=== PATIENT | male | born 1970 | race Caucasian/White ===

== ENCOUNTER → 2016-08-20 | Outpatient (CLI) | payer OTHER ==
[~2016-08-20] MED LIST: ASPI-586 PO; HYDR-3702 PO; METO50TA7 PO
[2016-08-20 10:47] LABS: BASOPHILS % (AUTO) 0 % (0-2); EOSINOPHILS % (AUTO) 1 % (0-4); MEAN CORPUSCULAR HGB CONC 34.3 g/dL (31.0-37.0); MEAN CORPUSCULAR VOLUME 97 FL (80-100); MONOCYTES # (AUTO) 0.5 X10^3; MONOCYTES % (AUTO) 10 % (3-11); NEUTROPHILS # (AUTO) 3.9 X10^3; NEUTROPHILS % (AUTO) 71 % (51-67); PLATELET COUNT 136 10^3uL (150-450); WHITE BLOOD COUNT 5.49 10^3uL (4.0-11.0)
[2016-08-20 11:20] LABS: MEAN CORPUSCULAR HEMOGLOBIN 33.3 PG (26.0-34.0)
--- NOTE | 2016-08-20 11:21 | Diagnostic Imaging Report ---
INDICATION: Physical. Comparison with 07/22/2015. FINDINGS: PA and lateral views show the lungs to be clear. The heart is not enlarged. No hilar adenopathy. No pulmonary edema. No pneumothorax or pleural effusions. No bony abnormalities. IMPRESSION: Normal PA and lateral chest. Dictated by: Dictated on workstation # [id number]
[2016-08-20 11:48] LABS: ALBUMIN 4.6 g/dL (3.4-5.0); ALKALINE PHOSPHATASE 73 U/L (38-126); ANION GAP 15.2 MEQ/L (3-15); BUN/CREATININE RATIO 21 (10-20); CALCULATED IONIZED CALCIUM 3.9 mg/dL (3.8-4.6); TOTAL PROTEIN 7.3 g/dL (6.4-8.5)
== END ==
LOC: RAD 10:30
PROVIDERS: ATTEND Family Medicine
DX: Z00.00 Encounter for general adult medical examination without abnormal findings (principal); N44.8 Other noninflammatory disorders of the testis
CPT/HCPCS: 36415; 71020; 80053; 80061; 83036; 84403; 84436; 84443; 85025; 93005

== ENCOUNTER → 2016-08-24 | Outpatient (CLI) | payer OTHER ==
--- NOTE | 2016-08-24 14:32 | Diagnostic Imaging Report ---
INDICATION: Right testicular swelling. COMPARISON: None. DISCUSSION: Sonographic evaluation of the scrotum was performed. The testicles appear normal and symmetric in echotexture and size bilaterally with normal color and spectral Doppler blood flow. The right testicle measures 3.9 x 2.2 x 2.1 cm. The left testicle measures 3.4 x 1.6 x 2.1 cm. A 4 mm cyst within the right epididymis is benign. The epididymides are otherwise unremarkable. No hydrocele or varicocele. The scrotal wall is unremarkable. IMPRESSION: Normal sonographic appearance of the scrotum. Dictated by: Dictated on workstation # [id number]
== END ==
LOC: RAD 13:02
PROVIDERS: ATTEND Family Medicine
DX: N44.8 Other noninflammatory disorders of the testis (principal)
CPT/HCPCS: 76870